=== PATIENT | male | born 1960 | race Caucasian/White ===

== ENCOUNTER 2024-02-09 06:27 | Day surgery (SDC) | payer OTHER ==
[~2024-02-09] VITALS: Ht 170.2 cm; Wt 83.5 kg
[2024-02-09] MEDS ORDERED: SIMETHICONE 40 MG/0.6 ML ML ONE (07:22)
[2024-02-09] MEDS ORDERED: fentaNYL CITRATE/PF 100 MCG/2 ML AMP ONE (07:22)
[2024-02-09] MEDS ORDERED: MIDAZOLAM HCL 5 MG/5 ML VIAL ONE (07:23)
[2024-02-09 12:21] VITALS: BP_SYST 108; PULSE 69; RESP 18; TEMP 98.3; O2SAT 98
== END 2024-02-09 08:40 | disposition home or self-care (01) ==
LOC: SDS 06:27 → SMU 06:28 → SDS 08:40
PROVIDERS: ATTEND Internal Medicine
DX: K74.60 Unspecified cirrhosis of liver (principal); I85.00 Esophageal varices without bleeding; I10 Essential (primary) hypertension; E10.9 Type 1 diabetes mellitus without complications; K29.50 Unspecified chronic gastritis without bleeding; K21.9 Gastro-esophageal reflux disease without esophagitis; E78.5 Hyperlipidemia, unspecified; F41.9 Anxiety disorder, unspecified; M19.90 Unspecified osteoarthritis, unspecified site; Z87.891 Personal history of nicotine dependence; Z79.84 Long term (current) use of oral hypoglycemic drugs; Z79.899 Other long term (current) drug therapy
CPT/HCPCS: 43244; 43239; 82948; 88305; 88312; 88313; G0378; J2250; J3010